=== PATIENT | female | born 1970 | race Caucasian/White ===

== ENCOUNTER 2017-10-13 05:55 | Day surgery (SDC) | payer BC ==
[~2017-10-13] VITALS: Ht 172.7 cm; Wt 93.0 kg
[2017-10-13 06:21] LABS: HCG,QUAL RESULT NEGATIVE (NEGATIVE)
[2017-10-13] MEDS ORDERED: LIDOCAINE 2%, 20 ML MDV ONE (06:26)
[2017-10-13] MEDS ORDERED: MIDAZOLAM HCL 5 MG/5 ML VIAL ONE (07:28)
[2017-10-13] MEDS ORDERED: MIDAZOLAM HCL 2 MG/2 ML VIAL (VERSED) IVP ONE (07:45)
[2017-10-13] MEDS ORDERED: LR 1,000 ML IV SCH (08:48)
[2017-10-13] MEDS ORDERED: fentaNYL CITRATE 250 MCG/5 ML AMP ONE (09:00)
[2017-10-13] MEDS ORDERED: DEXAMETHASONE SOD PHOSPHATE 4 MG/ML VIAL ONE (09:00)
[2017-10-13] MEDS ORDERED: PROPOFOL 200MG/ 20ML VIAL (DIPRIVAN) IV ONE (09:00)
[2017-10-13] MEDS ORDERED: MIDAZOLAM HCL 5 MG/ML VIAL (VERSED) IV ONE (09:00)
[2017-10-13] MEDS ORDERED: NS IRRIG SOLN 1000 ML IR ONE (09:00)
[2017-10-13] MEDS ORDERED: KETOROLAC TROMETHAMINE 30 MG VIAL ONE (09:00)
[2017-10-13] MEDS ORDERED: ROCURONIUM BROMIDE 10 MG/ML (ZEMURON) ONE (09:00)
[2017-10-13] MEDS ORDERED: MEPERIDINE HCL/PF 25 MG/ML DISP.SYRIN IVP PRN (09:00)
[2017-10-13] MEDS ORDERED: LR 1,000 ML IV.SOLN IV ONE (09:00)
[2017-10-13] MEDS ORDERED: HYDROmorphone 1 MG INJ. 1 MG/ML AMPUL IVP PRN (09:00)
[2017-10-13] MEDS ORDERED: MUPIROCIN 2% TOPICAL OINTMENT 22 GM ONE (09:00)
[2017-10-13] MEDS ORDERED: HYDROmorphone 2 MG/ML VIAL IVP PRN ×2 (09:00)
[2017-10-13] MEDS ORDERED: ONDANSETRON HCL 4 MG/2 ML VIAL ONE (09:00)
[2017-10-13] MEDS ORDERED: SEVOFLURANE 15 MIN GAS INH ONE (09:00)
[2017-10-13] MEDS ORDERED: OXYMETAZOLINE HCL 0.05% NASAL SPRAY NS ONE (09:00)
[2017-10-13 10:03] VITALS: BP_SYST 118
== END 2017-10-13 11:15 | disposition home or self-care (01) ==
LOC: SMU 05:55 → SDS 05:55
PROVIDERS: ATTEND Otolaryngology
DX: J34.2 Deviated nasal septum (principal); J34.89 Other specified disorders of nose and nasal sinuses; Z82.49 Family history of ischemic heart disease and other diseases of the circulatory system; Z80.9 Family history of malignant neoplasm, unspecified; Z83.3 Family history of diabetes mellitus; Z87.891 Personal history of nicotine dependence; Z79.899 Other long term (current) drug therapy; E66.3 Overweight; G43.909 Migraine, unspecified, not intractable, without status migrainosus
CPT/HCPCS: 30140; 30520; 84703; 88305; 88311; J1100; J1885; J2001; J2250 ×2; J2405; J2704; J3010; J7120; J3465